=== PATIENT | female | born 1950 | race Caucasian/White ===

== ENCOUNTER → 2024-02-08 11:18 | Outpatient (REF) | payer OTHER, SELFPAY | LOC: RCS 11:18 | PROVIDERS: ATTENDING PHYSICIAN Internal Medicine Cardiovascular Disease; FAMILY PHYSICIAN Family Medicine | DX: R06.09 Other forms of dyspnea (principal); R53.83 Other fatigue; R94.31 Abnormal electrocardiogram [ECG] [EKG] | CPT/HCPCS: 93306 ==

== ENCOUNTER 2024-04-21 14:59 | Emergency (ER) | payer OTHER, SELFPAY ==
[2024-04-21 15:08] VITALS: BP 114/86
[2024-04-21 15:23] LABS: % Basophils 0.4 % (0-2); % Eosinophils 0.4 % (0-6); % Immature Granulocytes 0.5 % (0-0.5); % Lymphocytes 10.8 % (20.5-51.1); % Monocytes 13.4 % (1.7-9.3); % Neutrophils 74.5 % (42.2-75.2); Absolute Basophils 0.1 10^3/uL (0-0.2); Absolute Eosinophils 0.1 10^3/uL (0-0.7); Absolute Immature Granulocytes 0.1 10^3/uL (0-0.05); Absolute Lymphocytes 1.2 10^3/uL (1.2-3.4); Absolute Monocytes 1.5 10^3/uL (0.1-0.6); Absolute Neutrophils 8.5 10^3/uL (1.4-6.5); Hematocrit 41.2 % (37.0-47.0); Hemoglobin 14.4 g/dL (12.0-16.0); Mean Corpuscular Hgb 29.6 pg (27.0-31.0); Mean Corpuscular Volume 84.8 fL (81.0-99.0); Mean Platelet Volume 9.4 fL (7.4-10.4); Nucleated Red Blood Cells % 0 %; Platelet Count 287 10^3/uL (130-400); Red Blood Cell Count 4.86 10^6/uL (4.20-5.40); Red Cell Dist. Width 13.5 % (11.5-14.5); White Blood Cell Count 11.4 10^3/uL (4.8-10.8)
--- NOTE | 2024-04-21 15:27 | ED.GENMED ---
ED Provider Triage
<Geovanna iLon, PRECISION GRINDER - Last Filed: 04/21/24 15:28>
-
Patient seen by provider in Triage?: Seen in Triage
73 yo female here for diarrhea x 4 days, no diarrhea today, also with nausea, no vomiting. Her son has Norovirus. denies fever/chills.
History of Present Illness
<Geovanna Lion, PRECISION GRINDER - Last Filed: 04/21/24 15:28>
General
Chief Complaint: Abdominal Symptoms
Time Seen by Provider: 04/21/24 16:31
<Channing Downing DO - Last Filed: 04/22/24 00:34>
General
Source: patient, records and spouse
Exam Limitations: none
Nursing documentation reviewed up to this point in time: agreed with
History of Present Illness
History of Present Illness:
Patient is a 73-year-old female who presents to the emergency department complaining of fatigue and diarrhea. Patient states that about a week ago she started with a cough and nasal congestion which seemed to resolve and then 4 days ago started
with explosive diarrhea that was occurring every 10 minutes. Patient did have a syncopal episode after 1 particular episode a couple days ago. Patient denies any headache or neck pain. Patient denies fever but admits to sweats. Patient has
crampy abdominal pain but denies any nausea or vomiting. Patient says the stool is mucus without blood. Patient was on antibiotics 2 to 3 weeks ago for dental problem. Patient has not traveled outside [facility] or eating raw seafood.
Patient's son is ill at home with similar symptoms. Patient denies any chest pain, shortness of breath or palpitations.
Past History
<Geovanna Lion, PRECISION GRINDER - Last Filed: 04/21/24 15:28>
Past History
ED Past Medical History: Asthma and Psychiatric
ED Past Surgical History: Gynecological
Social History
Tobacco: Non-smoker
Personal:
Living: with family
Review of Systems
<Channing Downing DO - Last Filed: 04/22/24 00:34>
Review of Systems
All Other Systems: ROS reviewed and negative except as documented in HPI and ROS
Constitutional: Reports fatigue and night sweats; Denies fever or chills
EENT: Reports runny nose
Respiratory: Reports cough; Denies trouble breathing
Cardiac: Reports syncope; Denies chest pain, diaphoresis or palpitations
ABD/GI: Reports abdominal pain, diarrhea and anorexia; Denies nausea, vomiting, bloody stools or black stools
: Reports no symptoms
Musculoskeletal: Reports no symptoms
Skin: Reports no symptoms
Neurological: Reports no symptoms
Hematologic/Lymphatic: Reports no symptoms
Psychiatric: Reports no symptoms
Phy Exam
<Channing Downing DO - Last Filed: 04/22/24 00:34>
Physical Exam
Physical Exam:
Physical Exam
General: mild distress, alert and appropriate, well nourished, dry mucous membranes
HENT: Normocephalic, supple with no lymphadenopathy, no thyromegaly
Eyes: Clear sclera, conjuctiva without injection
Heart: Regular rhythm and rate. No S3, S4. No murmur. No NVD
Lungs: No respiratory distress, no stridor, lung sounds clear and equal bilaterally
Abdomen: Soft, nontender, no organomegaly, no CVA tenderness, BS good
Neuro: Alert and oriented x 3, CN II - XII intact, no motor focality, no cerebellar dysfunction
Skin: no rash
Psychiatric: well kept. interactive and cooperative
Extremities: No edema, cyanosis, tenderness, Good and equal peripheral pulses.
Scores
<Channing Downing DO - Last Filed: 04/22/24 00:34>
Heart Failure Risk
Heart Failure Risk Score: Not Applicable
Heart Score for Chest Pain Patients
STEMI patient?: Not applicable
Withdrawal Assessment of Alcohol
Withdrawal Assessment Completed?: Not applicable
Course
<Geovanna Lion, PRECISION GRINDER - Last Filed: 04/21/24 15:28>
Orders/Labs/Results
Orders:
Orders
04/21/24 15:13
CMP [Comprehensive Metabolic Panel] Urgent
Complete Blood Count/With Diff Urgent
04/21/24 16:44
0.9% Sodium Chloride 1000 ml [Nss] 1,000 ml IV BOLUS
HYDROmorphone [Dilaudid] 0.5 mg IV NOW STA
Ondansetron Injectable [Zofran] 4 mg IV NOW STA
04/21/24 17:51
Norovirus by PCR Urgent
SHAWANDA Source: Feces/Stool
Specimen Description:
Date Specimen was Collected: 04/21/24
Time Specimen was Collected: 17:50
STOOL [C difficile Antigen & Toxins] Urgent
SHAWANDA Source: Feces/Stool
Specimen Description:
Date Specimen was Collected: 04/21/24
Time Specimen was Collected: 17:50
Stool Culture Urgent
SHAWANDA Source: Feces/Stool
Specimen Description:
Date Specimen was Collected: 04/21/24
Time Specimen was Collected: 17:50
Abnormal Lab Results
04/21/24
15:13
WBC 11.4 H 10^3/uL
(4.8-10.8)
Abs Immat Gran (auto) 0.1 H 10^3/uL
(0-0.05)
Absolute Neuts (auto) 8.5 H 10^3/uL
(1.4-6.5)
Absolute Monos (auto) 1.5 H 10^3/uL
(0.1-0.6)
Lymphocytes % 10.8 L %
(20.5-51.1)
Monocytes % 13.4 H %
(1.7-9.3)
Glucose 123 H mg/dl
(70-99)
04/21/24 15:13
04/21/24 15:13
Vital Signs
Initial and Last Documented VS:
Initial Vital Signs
Temp Pulse Resp BP Pulse Ox
98.1 F 78 18 114/86 97
04/21/24 15:08 04/21/24 15:08 04/21/24 15:08 04/21/24 15:08 04/21/24 15:08
Last Documented Vital Signs
Temp Pulse Resp BP Pulse Ox
98.1 F 68 11 114/86 95
04/21/24 15:08 04/21/24 19:30 04/21/24 19:30 04/21/24 15:08 04/21/24 17:00
<Channing Downing DO - Last Filed: 04/22/24 00:34>
Orders/Labs/Results
Orders:
Orders
04/21/24 15:13
CMP [Comprehensive Metabolic Panel] Urgent
Complete Blood Count/With Diff Urgent
04/21/24 16:44
0.9% Sodium Chloride 1000 ml [Nss] 1,000 ml IV BOLUS
HYDROmorphone [Dilaudid] 0.5 mg IV NOW STA
Ondansetron Injectable [Zofran] 4 mg IV NOW STA
04/21/24 17:51
Norovirus by PCR Urgent
SHAWANDA Source: Feces/Stool
Specimen Description:
Date Specimen was Collected: 04/21/24
Time Specimen was Collected: 17:50
STOOL [C difficile Antigen & Toxins] Urgent
SHAWANDA Source: Feces/Stool
Specimen Description:
Date Specimen was Collected: 04/21/24
Time Specimen was Collected: 17:50
Stool Culture Urgent
SHAWANDA Source: Feces/Stool
Specimen Description:
Date Specimen was Collected: 04/21/24
Time Specimen was Collected: 17:50
Abnormal Lab Results
04/21/24
15:13
WBC 11.4 H 10^3/uL
(4.8-10.8)
Abs Immat Gran (auto) 0.1 H 10^3/uL
(0-0.05)
Absolute Neuts (auto) 8.5 H 10^3/uL
(1.4-6.5)
Absolute Monos (auto) 1.5 H 10^3/uL
(0.1-0.6)
Lymphocytes % 10.8 L %
(20.5-51.1)
Monocytes % 13.4 H %
(1.7-9.3)
Glucose 123 H mg/dl
(70-99)
04/21/24 15:13
04/21/24 15:13
Vital Signs
Initial and Last Documented VS:
Initial Vital Signs
Temp Pulse Resp BP Pulse Ox
98.1 F 78 18 114/86 97
04/21/24 15:08 04/21/24 15:08 04/21/24 15:08 04/21/24 15:08 04/21/24 15:08
Last Documented Vital Signs
Temp Pulse Resp BP Pulse Ox
98.1 F 68 11 114/86 95
04/21/24 15:08 04/21/24 19:30 04/21/24 19:30 04/21/24 15:08 04/21/24 17:00
<Channing Downing DO - Last Filed: 04/22/24 00:34>
*Pulse Oximetry
Patient hypoxic: no
*EKG
Interpreted by ED Provider?: NA
*Dial Polisher Interpretation
Rate: Dial Polisher- N/A
*Critical Care Note
Total Time (30-74mins, 75-104mins- exclusive of procedures): Not Applicable
<Channing Downing DO - Last Filed: 04/22/24 00:34>
Update Note
Update Note:
Stool positive for C. difficile.
ED Attending Note
<Geovanna Lion PRECISION GRINDER - Last Filed: 04/21/24 15:28>
-
Portions of this chart may have been created with voice recognition software.� Occasional wrong word or��sound alike� substitutions may have occurred due to the inherent limitations of voice recognition software.
Discharge Plan
Departure
Patient Disposition: Home (Routine Discharge)
Date of Disposition: 04/21/24
Time of Disposition: 19:12
Patient with high blood pressure during this ER visit?: No
Condition: Fair
Covid-19: Not Applicable
Discharge Problem:
C. difficile enteritis
Instructions: [place] Diet, Clostridioides difficile ED
Prescriptions:
New
vancomycin 125 mg capsule
125 mg PO QID Qty: 40 0RF
No Action
desvenlafaxine succinate [Pristiq] 100 MG tablet extended release 24 hr
100 mg PO DAILY
amlodipine 5 MG tablet
5 mg PO DAILY Qty: 20 1RF
Referrals:
Olesya Mckeon MD [Family Provider] - Follow up in 5-7 days
Interventions
Interventions:
*Risk Screen - Suicide Last Done: 04/21/24 19:54
*General Assessment Last Done: 04/21/24 15:08
*Neglect/Abuse Screening Last Done: 04/21/24 19:54
ED- Fall Risk Assessment Last Done: 04/21/24 19:54
*ED COVID-19 Vaccine History Last Done: 04/21/24 19:54
*Nursing Disposition Last Done: 04/21/24 19:54
VY-Aqfhhj-Cpjyspwtmi Assessment Last Done: 04/21/24 17:38
Discharge Date and Time
Discharge Date/Time: 04/21/24 19:55
Print Language: WELSH
[2024-04-21 15:38] LABS: ALT (SGPT) 17 U/L (0-35); AST (SGOT) 18 U/L (14-36); Albumin 4.1 g/dl (3.5-5.0); Alkaline Phosphatase 55 U/L (38-126); Blood Urea Nitrogen 13 mg/dl (7-17); Calcium 9.2 mg/dl (8.4-10.2); Carbon Dioxide 25 mmol/L (22-30); Chloride 101 mmol/L (98-107); Glucose 123 mg/dl (70-99); Potassium 3.8 mmol/L (3.5-5.1); Sodium 136 mmol/L (135-145); Total Bilirubin 0.5 mg/dl (0.2-1.3); Total Protein 6.9 g/dl (6.3-8.2); eGFR > 60.00
[2024-04-21] MEDS: ZOFRAN 4 MG IV (17:16)
[2024-04-21] MEDS: NSS 1000 IV (17:16)
[2024-04-21] MEDS: DILAUDID 0.5 MG IV (17:17)
[2024-04-21 17:37] VITALS: BMI 32.3
== END 2024-04-21 19:55 | disposition home or self-care (01) ==
LOC: EMR 14:59
PROVIDERS: Registered Nurse; EMERGENCY PHYSICIAN Emergency Medicine; FAMILY PHYSICIAN Family Medicine
DX: A04.72 Enterocolitis due to Clostridium difficile, not specified as recurrent (principal)
CPT/HCPCS: 99284; 96374; 96375; 96361; 80053; 85025; 87045; 87046; 87077; 87324; 87427; 87449; 87798